=== PATIENT | female | born 1930 | race African-American/Black ===

== ENCOUNTER 2017-05-12 16:27 | Emergency (ER) | payer MEDICARE ==
[2017-05-12] MEDS ORDERED: Sodium Chloride 0.9% 1,000 ML ONE ×2 (18:44→18:55)
[2017-05-12] MEDS ORDERED: Piperacillin/Tazobactam 3.375 GM VIAL ONE (18:54)
[2017-05-12] MEDS ORDERED: Acetaminophen 500 MG TAB ONE (18:54)
[2017-05-12 19:05] LABS: ALT (SGPT) 30 U/L (8-55); AST (SGOT) 39 U/L (5-34); Albumin 3.8 g/dL (3.4-4.8); Alkaline Phosphatase 85 U/L (40-150); Anion Gap 17 mmol/L (10-20); BUN (Urea Nitrogen) 19 mg/dL (9.8-20.1); Bilirubin, Total 2.5 mg/dL (0.2-1.2); Calc. Creatinine Clearance 0 mL/min (70-130); Calcium 10.2 mg/dL (7.8-10.44); Carbon Dioxide 19 mmol/L (23-31); Chloride 102 mmol/L (98-107); Estimated GFR-MDRD 52; Glucose 106 mg/dL (83-110); Potassium 3.3 mmol/L (3.5-5.1); Protein, Total 7.8 g/dL (6.0-8.3); Sodium 135 mmol/L (136-145)
[2017-05-12 19:10] LABS: Bilirubin Small (Negative); Blood, Urine Small (Negative); Clarity Clear (Clear); Glucose, Urine (Dipstick) Negative (Negative); Leukocyte Negative (Negative); Nitrite Negative (Negative); Protein, Urine (Dipstick) > or equal to 300 mg/dL (Neg-Trace); pH, Urine 5.5 (5.0-9.0)
[2017-05-12 19:16] LABS: Bacteria/HPF None Seen HPF (None Seen); RBC/HPF 0-3 HPF (0-3); Squamous Epithelial 0-3 HPF (0-3); WBC/HPF 0-3 HPF (0-3)
[2017-05-12] MEDS ORDERED: Potassium Chloride 20 MEQ TAB ONE (19:22)
[2017-05-12 19:26] LABS: Band 34 % (5-11); Hemoglobin 11.4 g/dL (12.0-16.0); Lymphocytes 8 % (21-51); MDiff Complete? YES; Mean Corpuscular Hemoglobin 27.8 pg (27.0-31.0); Mean Corpuscular Volume 89.7 fl (81.0-99.0); Mean Platelet Volume 8.8 fL (7.4-10.4); Metamyelocyte 2 % (0-0); Monocytes 5 % (0-10); Neutrophil 51 % (42-75); PLT Morphology Comment Appears Adequate; Platelet Count 144 thou/uL (130-400); RBC Distribution Width 12.2 % (11.5-14.5); RBC Morphology Normal; Red Blood Cell (RBC) Count 4.12 mill/uL (4.20-5.40); White Blood Cell (WBC) Count 10.7 thou/uL (4.8-10.8)
--- NOTE | 2017-05-12 21:18 | RAD ---
AP VIEW OF THE CHEST 05/12/17 INDICATION: Fever and cough. FINDINGS: There is air space opacity within the retrocardiac left lower lobe. Left lower lobe air space process cannot be excluded. Recommend a two view chest radiograph for further evaluation. The visualized rig ht lung is clear. Heart size and pulmonary vasculature is within normal limits. Vascular calcificatio n was seen involving the aortic arch. No acute osseous abnormality is evident. There is elevation of the right humeral head which likely reflects cartilage cuff insufficiency. IMPRESSION: Increased air space opacity in the retrocardiac left lower lobe is suspicious for pneumonia. Recommen d two view radiograph for further evaluation. POS: [facility]
[2017-05-12] MEDS ORDERED: Sodium Chloride 0.9% 250 ML 250 ML ONE (21:21)
== END 2017-05-12 22:20 | disposition home or self-care (01) ==
LOC: NAV ERS 16:27
DX: J18.9 Pneumonia, unspecified organism (principal); D72.825 Bandemia; I25.2 Old myocardial infarction; K21.9 Gastro-esophageal reflux disease without esophagitis; I10 Essential (primary) hypertension; Z79.899 Other long term (current) drug therapy
CPT/HCPCS: 51701; 71010; 80053; 81003; 81015; 83605; 85025; 87040; 87086; 93005; 96361; 96365; A4353; J2543; J3370; J7050